=== PATIENT | male | born 1990 | race Caucasian/White ===

== ENCOUNTER → 2018-06-08 | Outpatient (CLI) | payer OTHER ==
--- NOTE | 2018-06-08 13:13 | PCVCIMAG ---
APPROVED REPORT Study performed: 06/08/2018 12:25:33 EXAM: Comprehensive 2D, Doppler, and color-flow Echocardiogram Patient Location: Echo lab Status: routine BSA: 2.11 HR: 65 bpmBP: 130/85 mmHg Rhythm: NSR Other Information Study Quality: Good Risk Factors: Cardiac Risk Factors: Hyperlipidemia, HTN Indications Dyspnea Chest Pain Hypertension/HDD 2D Dimensions IVSd: 10.28 (7-11mm)LVOT Diam: 21.14 (18-24mm) LVDd: 48.03 mm PWd: 11.03 (7-11mm)Ascending Ao: 25.88 (22-36mm) LVDs: 38.26 (25-40mm) Left Atrium: 28.00 (27-40mm) Aortic Root: 25.65 mm LV Single Plane 4CH: 47.28 % LV Single Plane 2CH: 61.98 % Biplane EF: 54.9 % Volumes Left Atrial Volume (Systole) Single Plane 4CH: 21.88 mLSingle Plane 2CH: 33.65 mL LA ESV Index: 13.00 mL/m2 Aortic Valve AoV Peak Suresh.: 1.03 m/s AO Peak Gr.: 4.20 mmHgLVOT Max P.84 mmHg LVOT Max V: 0.98 m/s BARBARA Vmax: 3.35 cm2 TDI Medial E' Suresh.: 0.08 m/s Lateral E' Suresh.: 0.08 m/s Pulmonary Valve PV Peak Gr.: 1.55 mmHg Pulmonary Vein P Vein S: 0.48 m/sP Vein A: 0.32 m/s P Vein D: 0.46 m/sP Vein A Dur.: 83.0 msec P Vein S/D Ratio: 1.04 Left Ventricle The left ventricle is normal size. There is normal LV segmental wall motion. There is normal left ventricular wall thickness. Left ventricular systolic function is normal. The left ventricular ejection fraction is within the normal range. LVEF is 60-65%. The left ventricular diastolic function is normal. Right Ventricle The right ventricle is normal size. The right ventricular systolic function is normal. Atria The left atrium size is normal. The right atrium size is normal. Aortic Valve The aortic valve is normal in structure. No aortic regurgitation is present. There is no aortic valvular stenosis. Mitral Valve The mitral valve is normal in structure. There is no mitral valve regurgitation noted. No evidence of mitral valve stenosis. Tricuspid Valve The tricuspid valve is normal in structure. There is no tricuspid valve regurgitation noted. Pulmonic Valve The pulmonary valve is normal in structure. There is no pulmonic valvular regurgitation. Great Vessels The aortic root is normal in size. IVC is normal in size and collapses >50% with inspiration. Pericardium There is no pericardial effusion. <Conclusion> The left ventricle is normal size. LVEF is 60-65%. The right ventricle is normal size. The left atrium size is normal. The aortic valve is normal in structure. There is no mitral valve regurgitation noted. There is no tricuspid valve regurgitation noted. The aortic root is normal in size. There is no pericardial effusion.
--- NOTE | 2018-06-12 11:08 | PCVCIMAG ---
APPROVED REPORT Patient Location: Echo lab-treadmill stress test Room #: 1 Stress Nurse: Eri Sarah RN INDICATIONS: Chest pain, Hypertension, Hyperlipidemia The patient exercised according to the LANI protocol for 13:00 mins; achieving a work level of 17.50 METS. The resting heart rate of 85 bpm fausto to a maximum heart rate of 176 bpm. This value represents 91 % of the maximal, age-predicted heart rate. The resting blood pressure of130/85 mmHg, fausto to a maximum blood pressure of 170/76 mmHg. The exercise test was stopped due to chest discomfort. Conclusion #1 and exercised 13 minutes on a Lani protocol subsegment fatigue and shortness of breath. No reduction of chest pain or palpitations were noted. #2 no diagnostic EKG changes were noted #3 excellent exercise tolerance with appropriate hemodynamic response. Impression negative treadmill stress test for ischemia or dysrhythmia.
== END | disposition home or self-care (01) ==
LOC: PCVCIMAG 11:53
PROVIDERS: ATTEND Internal Medicine Cardiovascular Disease
DX: I10 Essential (primary) hypertension (principal); R07.9 Chest pain, unspecified; E78.5 Hyperlipidemia, unspecified; R06.00 Dyspnea, unspecified
CPT/HCPCS: 93017; 93306